=== PATIENT | male | born 1955 | race Hispanic/Latino ===

== ENCOUNTER 2017-08-26 07:17 | Day surgery (SDC) | payer OTHER ==
[2017-08-26] MEDS ORDERED: ECOTRIN PO NR (07:38)
[2017-08-26] MEDS ORDERED: NACL 0.9% 500 ML 500 ML IV SCH (08:00)
[2017-08-26 08:19] LABS: Hematocrit 38.1 % (35.5-45.6); Hemoglobin 13.2 gm/dl (11.8-15.2); Mean Corpuscular HGB Conc 35 % (32-34); Mean Corpuscular Hemoglobin 33 pg (28-32); Mean Corpuscular Volume 94 fl (84-94); Platelet Count 149 K/mm3 (140-440); Red Blood Count 4.05 M/mm3 (3.65-5.03)
[2017-08-26 08:34] LABS: BUN/Creatinine Ratio 31; Blood Urea Nitrogen 22 mg/dL (9-20); Calcium 10.1 mg/dL (8.4-10.2); Hemolysis Index 10
[2017-08-26 08:45] LABS: INR 0.94 (0.87-1.13)
[2017-08-26] MEDS ORDERED: HEPARIN/NS 5000 UNIT/500ML(CATH LAB) 1,000 ML IR ONE (10:10)
[2017-08-26] MEDS ORDERED: XYLOCAINE 2% INFILTRATI ONE (10:11)
[2017-08-26] MEDS ORDERED: SUBLIMAZE ONE (10:11)
[2017-08-26] MEDS ORDERED: VERSED ONE (10:11)
[2017-08-26 10:19] LABS: Eosinophils % (Manual) 0 % (0.0-4.3); Total Cells Counted 100
[2017-08-26 10:20] LABS: RBC Morphology Normal
[2017-08-26 10:21] LABS: Platelet Estimate Cons
[2017-08-26] MEDS: NITROGLYCERIN SYRINGE 3 ML ONE ×3 (10:27→10:34)
[2017-08-26] MEDS: HEPARIN 10,000 UNITS/10 ML ONE ×3 (10:28→10:34)
[2017-08-26] MEDS: CALAN ONE ×3 (10:28→10:34)
--- NOTE | 2017-08-26 11:16 | Short Stay Summary ---
Short Stay Documentation Date of service: 08/26/17 - History H&P: obtained from office - Allergies and Medications Current Medications: Allergies No Known Allergies Allergy (Unverified 08/26/17 07:18) Home Medications Medication Instructions Recorded Confirmed Last Taken Type Aspirin EC [Aspirin Enteric Coated 81 mg PO QDAY 08/26/17 08/26/17 08/25/17 History TAB] Calcium Carbonate [Calcium] 600 mg PO QDAY 08/26/17 08/26/17 08/25/17 History Carvedilol [Coreg] 12.5 mg PO BID 08/26/17 08/26/17 08/25/17 History Glimepiride [Amaryl] 4 mg PO BID 08/26/17 08/26/17 08/25/17 History Insulin Detemir [Levemir Flextouch] 60 unit SQ QHS 08/26/17 08/26/17 08/25/17 History Losartan [Cozaar] 100 mg PO QDAY 08/26/17 08/26/17 08/25/17 History Metformin HCl 1,000 mg PO BID 08/26/17 08/26/17 08/24/17 History Multivitamin [Multiple Vitamins] 1 each PO QDAY 08/26/17 08/26/17 08/25/17 History Rudyard-3 Fatty Acids/Fish Oil [Fish 0 each PO DAILY 08/26/17 08/26/17 08/25/17 History Oil] Ubidecarenone [Co Q-10] 300 mg PO QDAY 08/26/17 08/26/17 08/25/17 History amLODIPine [Norvasc] 0.5 tab PO DAILY 08/26/17 08/26/17 08/25/17 History Active Medications Sodium Chloride (Nacl 0.9% 500 Ml) 500 mls @ 50 mls/hr IV DIRECT SAMMIE Stop: 08/26/17 17:59 Last Admin: 08/26/17 08:49 Dose: 50 mls/hr - Physical exam General appearance: no acute distress Integumentary: no rash HEENT: Atraumatic Lungs: Clear to auscultation Breasts: deferred Heart: Regular rate Gastrointestinal: normal Male Genitourinary: deferred Female Genitourinary: deferred Rectal Exam: deferred Extremities: no ischemia - Brief post op/procedure progress note Date of procedure: 08/26/17 Pre-op diagnosis: Shortness of breath, abnormal cardiac PET scan Post-op diagnosis: same Procedure: LHC, LV gram Anesthesia: MAC Findings: See report Surgeon: PRANAY HAUNG Estimated blood loss: none Pathology: none Condition: stable - Hospital course Hospital course: Uneventful - Disposition Condition at discharge: Good Disposition: [id number] TO HOME OR SELFCARE Short Stay Discharge Plan Activity: advance as tolerated Weight Bearing Status: Non-Weight Bearing (for 2 days) Diet: low fat, low cholesterol, low salt, diabetic Special Instructions: restrict fluid intake to (64 ounces daily), hold Metformin (for 2 days) Follow up with: RICH PALOMARES MD [Primary Care Provider] - 7 Days Prescriptions: Furosemide [Lasix TAB] 40 mg PO QDAY #30 tablet
--- NOTE | 2017-08-26 12:13 | Cardiac Catherization Report ---
LEFT HEART CATHETERIZATION INDICATION: Stable angina, [place] class 2 and abnormal cardiac PET revealing ischemia in the circumflex artery distribution. PROCEDURES PERFORMED: 1. Selective left and right coronary angiography. 2. Left ventriculography. DESCRIPTION OF PROCEDURE: After obtaining written consent, the patient was draped using sterile technique. A 2% lidocaine was injected into the right wrist. A 6-Faroese vascular sheath was inserted into the right radial artery. A 6-Faroese JL3.5 catheter was used to selectively engage the left coronary artery. A 6-Faroese JR4 catheter was used to selectively engage the right coronary artery. A 6-Faroese JR4 catheter was used to hand inject a left ventriculogram. No complications occurred during the procedure. Hemostasis was achieved at the end of the procedure using manual pressure. SPECIMEN REMOVED: None. SEDATION ADMINISTERED: 1 mg of IV Versed and 50 mcg of IV fentanyl. PHYSICIAN PATIENT [id number] SEDATION START TIME: 10:16 a.m. PHYSICIAN PATIENT [id number] SEDATION STOP TIME: 11:00 a.m. TOTAL SEDATION TIME: 44 minutes. FINDINGS: HEMODYNAMICS: The aortic pressure was 104/76. The left ventricular systolic pressure was 118 mmHg. The left ventricular end-diastolic pressure was measured at 29 mmHg. CARDIAC STRUCTURES: The left ventricle is normal in size and systolic function. The left ventricular ejection fraction is estimated at 55%. CORONARY ANATOMY: 1. This is a right dominant circulation. 2. The left main is angiographically normal. 3. The left anterior descending artery has mild diffuse nonobstructive luminal irregularities with 10% luminal compromise. There is a large diagonal artery that is originating from the LAD. 4. The left circumflex artery has evidence of 2 patent stents noted in the mid and distal segments. The first and second obtuse marginal are very small in caliber and noted to be diffusely diseased and jailed by the previously placed stent. In between the stents, there is a focal 30% stenosis. The PLOM is patent. 5. The right coronary artery is a dominant vessel. There is a tubular 30% stenosis noted in the proximal right coronary artery. No significant obstructive disease is evident. IMPRESSION: 1. Patent stents noted in the mid and distal circumflex artery. Otherwise, nonobstructive coronary artery disease in the proximal right coronary artery. 2. Left ventricular ejection fraction is measured at 55%. 3. Left ventricular end-diastolic pressure was measured at 29 mmHg. RECOMMENDATIONS: The patient will be recommended to continue medical therapy. We will also recommend p.o. diuresis with Lasix as well as potassium replacement. The patient also will be recommended for salt and fluid restriction. [facility]# [id number] SHANICE/ISA
[2017-08-26 13:56] VITALS: BP 129/76
== END 2017-08-26 15:10 | disposition home or self-care (01) ==
LOC: CATHLABREC 07:17
PROVIDERS: ATTEND Internal Medicine
DX: I25.118 Atherosclerotic heart disease of native coronary artery with other forms of angina pectoris (principal); I10 Essential (primary) hypertension; E78.5 Hyperlipidemia, unspecified; E11.9 Type 2 diabetes mellitus without complications; Z91.040 Latex allergy status; Z79.82 Long term (current) use of aspirin; Z87.891 Personal history of nicotine dependence; E66.9 Obesity, unspecified; Z68.39 Body mass index [BMI] 39.0-39.9, adult; Z82.49 Family history of ischemic heart disease and other diseases of the circulatory system; Z79.84 Long term (current) use of oral hypoglycemic drugs; Z79.01 Long term (current) use of anticoagulants
CPT/HCPCS: 36415; 80048; 85007; 85025; 85610; 85730; 93005; 93010; 93458; C1894; J1644; J2250; J3010; J7040; Q9967